=== PATIENT | female | born 1995 | race Caucasian/White ===

== ENCOUNTER 2019-01-26 22:17 | Emergency (ER) | payer SELFPAY ==
[~2019-01-26] VITALS: Ht 162.6 cm; Wt 58.5 kg
[2019-01-26 22:21] VITALS: Ht 162.6 cm; Wt 58.5 kg
[2019-01-26 23:54] VITALS: BP 124/78; PULSE 70; RESP 16
--- NOTE | 2019-01-27 04:49 | ERD ---
ER Documentation Chief Complaint Chief Complaint WATTERS with nausea/weakness x 1 day after being in the sun all day x1 HPI This is a very pleasant 23-year-old female with no significant past medical history presents with complaints of generalized weakness, and a headache x1 day after being in the sun. 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 Patient states she does not usually drink water while working. Patient states her mother from a heat stroke, she was concerned about having a heat stroke so she came here for further evaluation. Patient states she drinks "a lot of water "prior to coming to the department. She states her symptoms essentially resolved prior to being seen by myself. She currently denies any symptoms. No nausea, vomiting, headache, dizziness, muscle cramping or any other complaints. ROS All systems reviewed and are negative except as per history of present illness. Allergies Allergies: Coded Allergies: No Known Allergy (Unverified , 01/26/19) PMhx/Soc Medical and Surgical Hx: pt denies Medical Hx History of Surgery: Yes (RT EYE INNER CANTHUS AREA LAC SURGERY. ) Anesthesia Reaction: No Hx Neurological Disorder: No Hx Respiratory Disorders: No Hx Cardiac Disorders: No Hx Psychiatric Problems: No Hx Miscellaneous Medical Probl: No Hx Alcohol Use: Yes (ON OCCASION.) Hx Substance Use: No Hx Tobacco Use: No Smoking Status: Never smoker Physical Exam Vitals Vital Signs Date Temp Pulse Resp B/P (MAP) Pulse Ox O2 O2 Flow FiO2 Time Delivery Rate 01/26/19 70 16 124/78 99 Room Air 23:54 (93) 01/26/19 97.8 74 16 124/78 99 22:21 (93) Physical Exam Const: No acute distress Head: Atraumatic Eyes: Normal Conjunctiva. EOMI. PERRLA. ENT: Normal External Ears, Nose and Mouth. Neck: Full range of motion. No meningismus. Resp: Clear to auscultation bilaterally Cardio: Regular rate and rhythm, no murmurs Abd: Soft, non tender, non distended. Normal bowel sounds Skin: No petechiae or rashes Back: No midline or flank tenderness Ext: No cyanosis, or edema Neur: Awake and alert Psych: Normal Mood and Affect Procedures/MDM MEDICAL DECISION MAKING: This is a 23-year-old female with family history of heatstroke presents with generalized weakness and a headache after being out in the sun all day. Patient symptoms have completely resolved upon my evaluation after drinking water. Her vital signs are normal here. She has no evidence of significant dehydration or hypoxia. No focal neurological deficits on physical exam. I offered basic labs and fluid hydration but patient deferred. She felt much better and felt comfortable being discharged home. She has no evidence of heatstroke at this time. I recommended she follow-up with the regular doctor next week. Strict return precautions were discussed. PRESCRIPTIONS: None SPECIALIST FOLLOW UP RECOMMENDED: None Departure Diagnosis: Primary Impression: Mild dehydration Condition: Stable Patient Instructions: Heatstroke, Dehydration (6Y-Adult), Heat Exhaustion Referrals: [facility] YOU HAVE RECEIVED A MEDICAL SCREENING EXAM AND THE RESULTS INDICATE THAT YOU DO NOT HAVE A CONDITION THAT REQUIRES URGENT TREATMENT IN THE EMERGENCY DEPARTMENT. FURTHER EVALUATION AND TREATMENT OF YOUR CONDITION CAN WAIT UNTIL YOU ARE SEEN IN YOUR DOCTORS OFFICE WITHIN THE NEXT 1-2 DAYS. IT IS YOUR RESPONSIBILITY TO MAKE AN APPOINTMENT FOR FOLOW-UP CARE. IF YOU HAVE A PRIMARY DOCTOR --you should call your primary doctor and schedule an appointment IF YOU DO NOT HAVE A PRIMARY DOCTOR YOU CAN CALL OUR PHYSICIAN REFERRAL HOTLINE AT IF YOU CAN NOT AFFORD TO SEE A PHYSICIAN YOU CAN CHOSE FROM THE FOLLOWING [facility] [address] [facility]. [facility] [address] [facility]. [facility] [address] [facility] [facility] [address] [facility]. [facility] [address] [facility]. [facility]. [address] [facility]. [facility] YOU HAVE RECEIVED A MEDICAL SCREENING EXAM AND THE RESULTS INDICATE THAT YOU DO NOT HAVE A CONDITION THAT REQUIRES URGENT TREATMENT IN THE EMERGENCY DEPARTMENT. FURTHER EVALUATION AND TREATMENT OF YOUR CONDITION CAN WAIT UNTIL YOU ARE SEEN IN YOUR DOCTORS OFFICE WITHIN THE NEXT 1-2 DAYS. IT IS YOUR RESPONSIBILITY TO MAKE AN APPOINTMENT FOR FOLOW-UP CARE. IF YOU HAVE A PRIMARY DOCTOR --you should call your primary doctor and schedule and appointment IF YOU DO NOT HAVE A PRIMARY DOCTOR YOU CAN CALL OUR PHYSICIAN REFERRAL HOTLINE AT . IF YOU CAN NOT AFFORD TO SEE A PHYSICIAN YOU CAN CHOSE FROM THE FOLLOWING [facility] INSTITUTIONS: [facility] [address] [place] [address] [facility] [address] [place] [address] [facility] [address] [place] [address] Additional Instructions: YOU MUST drink lots of water, keep yourself hydrated, especially when it is hot outside. Return here for any worsening symptoms, nausea, headache, muscle cramping or pain or intractable vomiting. Otherwise follow-up with your regular care doctor. SERVANDO KEARNS PA-C Jan 27, 2019 04:49
== END 2019-01-26 23:54 | disposition home or self-care (01) ==
LOC: FTE 22:17
DX: E86.0 Dehydration (principal)
CPT/HCPCS: 99282